=== PATIENT | female | born 1965 | race Caucasian/White ===

== ENCOUNTER 2022-10-09 15:06 | Outpatient (REF) | payer OTHER, SELFPAY ==
[2022-10-09 16:42] LABS: MANUAL DIFF FLAG NO
[2022-10-09 17:24] LABS: Basophils Absolute Auto 0.1 X10*3/uL (0.0-0.2); Eosinophils Absolute Auto 0.2 X10*3/uL (0.0-0.4); Eosinophils Percent Auto 2.2 % (0-4); Hemoglobin 13.6 g/dl (12.0-16.0); Imm Gran Abs Auto 0.02 X10*3/uL (0.00-0.03); Imm Gran Pct Auto 0.3 % (0.0-0.4); Lymphocytes Absolute Auto 2.2 X10*3/uL (1.2-4.9); Lymphocytes Percent Auto 30.2 % (20-40); Mean Corpuscular HGB Conc 32.4 g/dl (31.0-35.0); Mean Corpuscular Hemoglobin 31.1 pg (27.0-33.0); Mean Corpuscular Volume 96.1 fL (80.0-98.0); Mean Platelet Volume 11.3 fL (9.4-12.3); Monocytes Absolute Auto 0.8 X10*3/uL (0.1-1.2); Monocytes Percent Auto 10.9 % (2-11); Neutrophils Absolute Auto 4.1 x10*3/uL (2.0-8.3); Neutrophils Percent Auto 55.4 % (45-73); Platelet Count 253 X10*3/uL (160-400); Red Blood Count 4.37 X10*6/uL (4.20-5.50); Red Cell Distribution Width 14.1 % (11.0-16.0); White Blood Count 7.3 X10*3/uL (4.8-10.8)
[2022-10-09 18:04] LABS: Alanine Aminotransferase 19 U/L (0-31); Albumin Level 4.3 g/dL (3.5-5.0); Alkaline Phosphatase 80 U/L (39-117); Anion Gap 14 (12-20); Aspartate Amino Transferase 22 U/L (5-31); Bilirubin Total 0.4 mg/dL (0.0-1.0); Blood Urea Nitrogen 13 mg/dL (9-16); Calcium 9.7 mg/dL (8.4-10.2); Carbon Dioxide 28 mmol/L (22-29); Chloride 106 mmol/L (96-108); Estimated Glomerular Filt Rate > 60; Glucose Random 90 mg/dL (60-115); Magnesium 2.1 mg/dL (1.6-2.6); Phosphorus 3.5 mg/dL (2.7-4.5); Potassium 4.6 mmol/L (3.3-5.1); Sodium 143 mmol/L (135-145); Total Protein 6.9 g/dL (6.5-8.0)
[2022-10-09 18:20] LABS: Free T4 (Free Thyroxine) 0.91 ng/dL (0.71-1.85); Thyroid Stimulating Hormone 1.32 uIU/mL (0.32-4.0); Vitamin D 25-OH Total 38.1 ng/mL (>30)
[2022-10-13 21:49] LABS: Calcium (PTHI) 10.1 mg/dL (8.6-10.4); PTHI 32 pg/mL (16-77)
== END 2022-10-09 15:07 | disposition home or self-care (01) ==
LOC: HO.LAB 15:06
PROVIDERS: Visit Provider Obstetrics & Gynecology
DX: M81.0 Age-related osteoporosis without current pathological fracture (principal); Z20.2 Contact with and (suspected) exposure to infections with a predominantly sexual mode of transmission
CPT/HCPCS: 36415; 80053; 82306; 83735; 83970; 84100; 84439; 84443; 85025

== ENCOUNTER 2023-01-02 12:47 | Emergency (ER) | payer OTHER, SELFPAY ==
[2023-01-02 12:51] VITALS: BP 140/79; PULSE 72; RESP 18; TEMP 37.1; O2SAT 100; BMI 18.9
--- NOTE | 2023-01-02 12:54 | ED.WOUNDLAC ---
HPI - Wound/Laceration General Chief Complaint: Wound/Laceration Stated Complaint: Finger Lac R Hand Time Seen by Provider: 01/02/23 12:54 Source: patient Mode of arrival: ambulatory Limitations: no limitations History of Present Illness HPI narrative: 57-year-old female presents with laceration to her right middle finger, patient cut her finger with glass, same did against a door prior to arrival. Denies numbness, tingling. Reports that is bleeding or prior to arrival however now bleeding controlled. Not on a blood thinner. Up-to-date on tetanus shot. Review of Systems Review of Systems: Constitutional : No Fever, No Chills, Cardiovascular : No Chest Pain, No SOB Respiratory : No Dyspnea Gastrointestinal : No abdominal pain Musculoskeletal : No Joint Swelling Skin : No rash, positive skin laceration Neuro : No Weakness, No Numbness Psych : No SI/HI Yes all other systems are reviewed and are negative [facility] Past Medical History Attestation statement: The following information was validated with the patient. Source: old records reviewed and nursing notes reviewed Physical Exam Vital Signs: Vital Signs: Last Vital Signs Temp 98.7 F 01/02/23 12:51 Pulse 72 01/02/23 12:51 Resp 18 01/02/23 12:51 BP 140/79 H 01/02/23 12:51 Pulse Ox 100 01/02/23 12:51 O2 Del Method Room Air 01/02/23 12:51 BMI result Body Mass Index 18.9 vss Appearance: Alert.? Oriented X3.? No acute distress.? Head: Normocephalic, atraumatic, no step-offs or deformities Eyes: Pupils equal, round and reactive to light.? Neck: Normal inspection.? Neck supple.? CVS: Normal heart rate and rhythm.? Pulses normal.? Respiratory: No respiratory distress.? Breath sounds normal.? Abdomen: Soft and nontender.? Skin: Skin warm and dry.? Normal skin color.? Normal skin turgor.? + 2 cm linear lac to distal aspect of right middle finger . Cap refil <2 seconds. Normal sensation distally. Full ROM to all fingers b/l. No wrist drop. No FB visualized Extremities: No lower extremity edema.? No calf ttp. 5/5 strength to bilateral upper and lower extremities Neuro: Oriented X 3.? No motor deficit.? No sensory deficit. CN 2-12 intact Course Reevaluation(s) Reevaluation #1: Successful repair with Dermabond. Educated patient on diagnosis and treatment plan, answered all question, patient verbalizes understanding. At this time patient will be discharged home, advised to return with new or worsening symptoms. Educated on worrisome signs and symptoms and when to return. At this time I feel comfortable discharge home. Time: 12:57 Medical Decision Making Medical Decision Making MDM Narrative: 57-year-old female presents with laceration to right middle finger, cut herself with glass prior to arrival. Not on blood thinners. No numbness or tingling. Physical exam significant for Skin warm and dry.? Normal skin color.? Normal skin turgor.? + 2 cm linear lac to distal aspect of right middle finger . Cap refil <2 seconds. Normal sensation distally. Full ROM to all fingers b/l. No wrist drop. No FB visualized Likely simple laceration, no signs of foreign body, unlikely fracture dislocation. No signs of threatened limb or neurovascular compromise. Plan repair with Dermabond. Differential Diagnosis Differential Diagnoses: The differential diagnosis associated with the presentation includes Likely simple laceration, no signs of foreign body, unlikely fracture dislocation. No signs of threatened limb or neurovascular compromise. Admission/Observation Consideration of admission/observation: Escalation of care including admission/observation considered Not indicated Tests considered The following testing was considered but not selected: No indication for imaging, low suspicion for fractures or dislocation. Full range of motion to all fingers. Core Measures AMI core measures followed: Yes Measure exclusions: not indicated Discharge Plan Discharge Clinical Impression: Laceration Patient Disposition: Home, Self-Care Additional Instructions: Take your medications as prescribed. If you were prescribed antibiotics today, it is important that you take your medication to their entirety, do not skip any doses, do not finish them early. Follow-up with your primary care provider this week. Return to the emergency department with new or worsening symptoms. Such as fevers, chills, chest pain, shortness of breath, nausea, vomiting, dizziness, headache, vision changes, lethargy In case of emergency call 911 Please allow the Dermabond to fall off on its own. Return with new or worsening symptoms. Referrals: Jeff Hudson DO [Primary Care Provider] - 2 days
== END 2023-01-02 13:17 | disposition home or self-care (01) ==
PROVIDERS: Emergency Provider Emergency Medicine Emergency Medical Services; PCP Family Medicine
DX: S61.212A Laceration without foreign body of right middle finger without damage to nail, initial encounter (principal); W25.XXXA Contact with sharp glass, initial encounter; Y93.9 Activity, unspecified; Y92.9 Unspecified place or not applicable; Y99.9 Unspecified external cause status
CPT/HCPCS: 12001; 99282

== ENCOUNTER 2023-09-14 16:44 | Emergency (ER) | payer OTHER, SELFPAY ==
[2023-09-14 16:56] VITALS: BP 150/77; PULSE 91; RESP 16; TEMP 37.3; O2SAT 98; BMI 19.2
--- NOTE | 2023-09-14 17:04 | ED_ITS ---
HPI - General Adult General Chief complaint: Animal Bite Stated complaint: dog bite talked to Daily Time Seen by Provider: 09/14/23 17:03 Source: patient Mode of arrival: ambulatory Limitations: no limitations History of Present Illness HPI narrative: 58 yold healthy femal presents to the ED for right wrist dog bite. Patient states she was bitten yesterday by a dog who was there with its data entry clerk at the [facility]. Patient states she did not get the owners contact information and is unaware of dog's rabies status Related Data Previous Rx's Medication Instructions Recorded amoxicillin 875 mg-potassium 1 tab PO Q12H 10 days #20 tabs 09/14/23 clavulanate 125 mg tablet Allergies Allergy/AdvReac Type Severity Reaction Status Date / Time No Known Allergies Allergy Verified 09/14/23 17:04 Review of Systems 2 Review of Systems: dog bite Yes all other systems are reviewed and are negative [facility] Social History Social History Advance Directives: Yes Advance Directives Information Provided: No Advance Directives on File: No Physical Exam ED Vital Signs: Vital Signs - 24 hr 09/14/23 16:56 Temperature 99.1 F Pulse Rate 91 Respiratory Rate 16 Blood Pressure 150/77 H Pulse Oximetry 98 Oxygen Delivery Method Room Air BMI result Body Mass Index 19.2 Const General: cooperative, healthy appearing, comfortable, no acute distress, well developed, alert, awake and Physically active Orientation/consciousness: oriented to person, oriented to place, oriented to time and patient oriented x3 HENMT Head: Yes normal to inspection, Yes No palpable skull fracture present, Yes normocephalic and Yes atraumatic Eyes General: appearance normal, both eyes and all related structures Neck Neck: Yes normal visual inspection, Yes full ROM, Yes no lymphadenopathy, Yes no meningeal signs, Yes trachea midline, Yes supple, No anterior neck swelling and No tender Chest Chest palpation & inspection: normal inspection of the chest and normal palpation of entire chest wall Resp Effort & Inspection: normal respiratory effort and able to speak in complete sentences Cardio Jugular venous distension: no JVD Heart sounds: S1 normal heart sound present and S2 normal heart sound present GI Inspection: Yes normal to inspection and No abdominal wall ecchymosis Palpation (GI): Soft to palpation, not firm, nontender, no guarding and not rigid General: Yes no CVA tenderness Back/Spine/Pelvis Back: no CVA tenderness and No back tenderness Skin General skin exam: no rashes or lesions noted, elasticity normal and turgor normal Neuro General: oriented to person, oriented to place, oriented to time, patient oriented x3, gait normal, tone normal, moves all extremities, Normal light touch and pain sensation, no meningeal signs and no focal motor deficits Extrem General: Yes normal to inspection and Yes full ROM Hand/finger images: 2 1. dog bite. negative for erythema, pus dischage, foul odor, or active bleeding. motor, neuro, and vascular exam is intact. Psych Appearance: grossly normal, well kempt and not disheveled Course Course Course Narrative: RME: 58 yold female presents to the ED for right wrist laceration by dog yesterday at [facility]. Can not contact data entry clerk. Defer rabies vaccines. educated. discharged with antbiotics. Medical Decision Making Medical Decision Making [facility] Narrative: 58 yold female healthty presents to the ED for Dog bite that occurred yesterday. patient is deferring rabies immunoglobin vaccine and will try to contact dog's data entry clerk. Patient explained worrisome signs of rabies. Patient agreeable to antibiotics prescription. Patient states if she changes her mind about rabies vaccine she will return to the ED or follow up with PCP. Patient explained worrisome signs and informed to return to the ED immiediatley. Differential Diagnosis Differential Diagnoses: The differential diagnosis associated with the presentation includes (dog bite) Admission/Observation Consideration of admission/observation: Escalation of care including admission/observation considered Independent Historian Clinical information obtained from an independent historian. History obtained from or confirmed by: Spouse External Record Review External record reviewed: Other Prescription Management I considered prescription management with: Antibiotic Discharge Plan Discharge Clinical Impression: Dog bite Patient Disposition: Home, Self-Care Instructions: Animal Bite (ED) Additional Instructions: Return to the ED immediately for any redness, pus discharge, foul odor, fever, chills, inability to move extremity, bluish black discoloration, or any other concerning symptoms. Recommend follow-up with your primary care provider. If you change your mind and would like to receive rabies vaccine return to the ED immediately or follow up with your primary care provider. Prescriptions: New amoxicillin-pot clavulanate 875-125 mg tablet 1 tab PO Q12H 10 Days Qty: 20 0RF Discharge Date/Time: 09/14/23 17:54 Print Language: Tajik
== END 2023-09-14 17:54 | disposition home or self-care (01) ==
PROVIDERS: Emergency Provider Emergency Medicine; PCP Family Medicine
DX: S61.551A Open bite of right wrist, initial encounter (principal); W54.0XXA Bitten by dog, initial encounter; Y93.9 Activity, unspecified; Y92.89 Other specified places as the place of occurrence of the external cause; Y99.9 Unspecified external cause status
CPT/HCPCS: 99281; 99283

== ENCOUNTER 2024-06-16 14:27 | Outpatient (AMB) | payer OTHER, SELFPAY ==
[2024-06-16 14:35] VITALS: BMI 19.2
--- NOTE | 2024-06-16 14:35 | A.OFFVIS_ITS ---
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 Was seen by about 5 years ago and did not end up getting intervention at that time. States the veins on her inner thighs are painful and getting worse to the point of concern. 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 Complaints include pain over varicosities in the upper thighs bilaterally, cramping, fatigue, and heaviness of the lower extremities. It has been affecting their daily activities including standing, walking. It is noted bilateral legs. She had been seen by Dr. Perez, who advised that she had some venous insufficiency approximally 5 years ago; however there were no procedures done. Patient denies any previous venous surgery or injections. Patient denies any history of DVT/ PE. Patient denies any history of phlebitis. Trial of compression includes - compression stockings and elevation with some relief They now present for vascular evaluation regarding their varicose veins. [facility] Social History (Updated 06/16/24 @ 14:43 by Jessica Ward Mayra) Patient Tobacco Use Status: Never used Tobacco Review of Systems Const Reports as per HPI and Denies weakness ENT Reports Normal hearing present and Denies dizziness Card Reports as per HPI, Denies chest pain, Denies chest pain at rest, Denies chest pain with activity, Denies dyspnea and Denies dyspnea on exertion Resp Reports as per HPI, Denies cough, Denies dyspnea and Denies dyspnea on exertion GI Reports as per HPI, Denies abdominal pain, Denies nausea and Denies vomiting Musc Denies numbness Skin/Breast Reports as per HPI, Denies erythema and Denies wounds Neuro Reports Normal hearing present, Denies dizziness, Denies numbness, Denies Sensory deficit (Neuro) and Denies weakness Psych Reports no additional complaints Endo Reports no additional complaints Physical Exam Vital Signs: BMI result Body Mass Index 19.2 Const General: healthy appearing and no acute distress Orientation/consciousness: patient oriented x3 HEENT Head: Yes normal to inspection Ears: hearing grossly normal bilaterally Mouth: Normal oral and palatal mucosa present Resp Effort & Inspection: normal respiratory effort and able to speak in complete sentences Auscultation: clear to auscultation bilaterally Cardio Jugular venous distension: no JVD Rate: regular rate Rhythm: regular rhythm Heart sounds: S1 normal heart sound present and S2 normal heart sound present Bruits: no abdominal aortic bruits, no carotid bruits, no femoral bruits and no renal bruits Peripheral pulses: Peripheral pulses 2+ throughout GI Inspection: Yes normal to inspection Palpation (GI): No Abdominal aortic bruit present Skin General skin exam: no rashes or lesions noted Wounds: no wounds Hair: normal Neuro General: patient oriented x3 Cranial nerves: Yes Normal hearing present Cognition (Neuro): normal cognition Gait exam (Neuro): Normal gait present Motor exam (neuro): 5/5 motor strength present throughout Sensory Exam: No Sensory deficit (Neuro) Extrem Other: Bilateral lower extremities: Tenderness upon palpation of the inner thighs. Trace peripheral edema noted CEAP: C -3 E - primary A - superficial P - reflux General: Yes normal to inspection, Yes full ROM, Yes capillary refill normal and Yes normal gait Assessment & Plan Assessment & Plan (1) Varicose veins of both lower extremities with inflammation: Code(s): I83.11 - Varicose veins of right lower extremity with inflammation; I83.12 - Varicose veins of left lower extremity with inflammation Category: Medical Plan: Angie is presenting today as a self-referral for ongoing varicose veins, worsening over the last 5 years. In short, the patient has evidence of venous insufficiency. I have discussed the pathophysiology with the patient. In addition I have provided informational material regarding venous disease to the patient. We have discussed conservative measures including compression, elevation, and exercise. We discussed the importance of continuing with compression stockings and elevation. I have taken the liberty of ordering venous insufficiency testing with the patient. They will follow up with me after testing. The patient had an opportunity to ask questions regarding the treatment plan. All questions were answered. Imaging studies, laboratory studies and physical exam results were discussed and reviewed in detail. No major barriers to understanding were identified. The patient expressed understanding and agreement with the above treatment plan. The patient is aware they should contact our office by phone for worsening of the current condition or the appearance of new symptoms. Thank you for allowing me to participate in the vascular care of this patient. If you have any questions or concerns regarding the treatment for the above condition please do not hesitate to contact me. The office telephone contact is [phone]. This note is constructed using voice recognition software. While every effort has been made to ensure accuracy, tar processing technician errors may have been included. Thank you for allowing me to participate in the care of your patient. Yours sincerely, BOO Dahl Orders: Orders US venous duplex LE BI 1 Week I83.11 - Varicose veins of right lower extremity with inflammation, I83.12 - Varicose veins of left lower extremity with infl ammation Coding Level of Care Code New Pt Level 4 (64773) Diagnoses Varicose veins of both lower extremities with inflammation I83.11; I83.12
== END 2024-06-16 14:57 | disposition home or self-care (01) ==
PROVIDERS: PCP Family Medicine; Visit Provider Physician Assistant Surgical
DX: I83.11 Varicose veins of right lower extremity with inflammation (principal); I83.12 Varicose veins of left lower extremity with inflammation
CPT/HCPCS: 99204

== ENCOUNTER → 2024-06-16 14:27 | Outpatient (BNVA) | payer OTHER, SELFPAY | PROVIDERS: PCP Family Medicine; Visit Provider Physician Assistant Surgical ==

== ENCOUNTER 2024-07-04 12:45 | Outpatient (REF) | payer OTHER, SELFPAY ==
--- NOTE | ~2024-07-04 | US_ITS ---
CLINICAL HISTORY: I83.11 - Varicose veins of right lower extremity with inflammation Venous duplex ultrasound bilateral lower extremity Superficial venous ultrasound with reflux evaluation. Comparison: None Findings: The visualized deep veins are fully compressible with normal Doppler color flow and spectral tracings. No popliteal cyst. The bilateral great and small saphenous veins are normal in caliber. There is a single focus of reflux noted along the right great saphenous vein at the knee measuring up to 5 seconds. Otherwise no reflux or significant varicosity identified. IMPRESSION: 1. Negative for bilateral lower extremity deep vein thrombosis. 2. Single focus of reflux noted along the right greater saphenous vein of the level of the right knee. This document has been electronically signed by: Demond Domingo MD on 07/05/2024 11:31:29
== END 2024-07-04 12:46 | disposition home or self-care (01) ==
LOC: HO.US 12:45
PROVIDERS: PCP Family Medicine; Visit Provider Physician Assistant Surgical
DX: I83.11 Varicose veins of right lower extremity with inflammation (principal); I83.12 Varicose veins of left lower extremity with inflammation
CPT/HCPCS: 93970

== ENCOUNTER → 2024-07-04 12:46 | Outpatient (BNV) | payer OTHER, SELFPAY | PROVIDERS: PCP Family Medicine; Visit Provider Radiology Vascular & Interventional Radiology | DX: I83.11 Varicose veins of right lower extremity with inflammation (principal) | CPT/HCPCS: 93970 ==

== ENCOUNTER 2024-07-14 10:06 | Outpatient (AMB) | payer OTHER, SELFPAY ==
[2024-07-14 10:11] VITALS: BMI 19.2
--- NOTE | 2024-07-14 10:11 | MHC.OFFVIS ---
Vital Signs 07/14/24 10:11 Height 5 ft 2 in Weight 105 lb BMI 19.2 Intake Visit Reasons: follow up [facility] 07/04/24 Intake Note: follow up [facility] 07/04/24, Right LE worse than Left LE. Pain is worse on the inner thigh Accompanied by: Self / Same As Patient Allergies No Known Allergies Allergy (Verified 07/14/24 10:13) HPI HPI follow up [facility] 07/04/24: Details: Alexa is presenting today for a follow up to her venous insufficiency ultrasound, performed on 07/04/2024. She states she continues with bilateral lower extremity pain, particularly in the right upper inner thigh as well as down the left lower extremity. The pain has not worsened. She states she has been wearing compression stockings and elevating her legs. [facility] Social History Patient Tobacco Use Status: Never used Tobacco Review of Systems Const Reports as per HPI and Denies weakness ENT Reports Normal hearing present and Denies dizziness Card Reports as per HPI, Denies chest pain, Denies chest pain at rest, Denies chest pain with activity, Denies dyspnea and Denies dyspnea on exertion Resp Reports as per HPI, Denies cough, Denies dyspnea and Denies dyspnea on exertion GI Reports as per HPI, Denies abdominal pain, Denies nausea and Denies vomiting Musc Denies numbness Skin/Breast Reports as per HPI, Denies erythema and Denies wounds Neuro Reports Normal hearing present, Denies dizziness, Denies numbness, Denies Sensory deficit (Neuro) and Denies weakness Psych Reports no additional complaints Endo Reports no additional complaints Physical Exam Vital Signs: BMI result Body Mass Index 19.2 Const General: healthy appearing and no acute distress Orientation/consciousness: patient oriented x3 HEENT Head: Yes normal to inspection Ears: hearing grossly normal bilaterally Mouth: Normal oral and palatal mucosa present Resp Effort & Inspection: normal respiratory effort and able to speak in complete sentences Auscultation: clear to auscultation bilaterally Cardio Jugular venous distension: no JVD Rate: regular rate Rhythm: regular rhythm Heart sounds: S1 normal heart sound present and S2 normal heart sound present Bruits: no abdominal aortic bruits, no carotid bruits, no femoral bruits and no renal bruits Peripheral pulses: Peripheral pulses 2+ throughout GI Inspection: Yes normal to inspection Palpation (GI): No Abdominal aortic bruit present Skin General skin exam: no rashes or lesions noted Wounds: no wounds Hair: normal Neuro General: patient oriented x3 Cranial nerves: Yes Normal hearing present Cognition (Neuro): normal cognition Gait exam (Neuro): Normal gait present Motor exam (neuro): 5/5 motor strength present throughout Sensory Exam: No Sensory deficit (Neuro) Extrem General: Yes normal to inspection, Yes full ROM, Yes capillary refill normal and Yes normal gait Results Reviewed Results Reviewed: Brief summary of venous insufficiency testing is as follows: right great saphenous vein: negative right small saphenous vein: negative right accessory vein: none present left great saphenous vein: negative left small saphenous vein: negative left accessory vein: none present Please note there is no evidence of any venous aneurysms or significant tortuosity Assessment & Plan Assessment & Plan (1) Varicose veins of both lower extremities with inflammation: Code(s): I83.11 - Varicose veins of right lower extremity with inflammation; I83.12 - Varicose veins of left lower extremity with inflammation Category: Medical Plan: Alexa is presenting today on a follow-up to her venous insufficiency ultrasound performed on 07/04/2024. There was no venous insufficiency found on ultrasound. We had a lengthy discussion about the size of the veins as well as the blood flow through the veins. I was able to answer all of her questions. We did discuss that the pain that she has been experiencing is likely not due to a vascular issue. We discussed to reach back out to her primary care to get further evaluation and treatment. We discussed if she has any changes or increased pain of her lower extremities, she can always reach out to us at any point. If there are any questions or concerns, please do not hesitate to reach out to us. Coding Level of Care Code Est Pt Level 4 (21475) Diagnoses Varicose veins of both lower extremities with inflammation I83.11; I83.12 Comment Review of venous insufficiency ultrasound
== END 2024-07-14 10:34 | disposition home or self-care (01) ==
PROVIDERS: PCP Family Medicine; Visit Provider Physician Assistant Surgical
DX: I83.11 Varicose veins of right lower extremity with inflammation (principal); I83.12 Varicose veins of left lower extremity with inflammation
CPT/HCPCS: 99214

== ENCOUNTER 2024-11-14 16:15 | Outpatient (REF) | payer OTHER, SELFPAY | END 2024-11-14 16:16 | disposition home or self-care (01) | LOC: HO.MAMMO 16:15 | PROVIDERS: PCP Family Medicine; Visit Provider Obstetrics & Gynecology | DX: Z12.31 Encounter for screening mammogram for malignant neoplasm of breast (principal) | CPT/HCPCS: 77063; 77067 ==

== ENCOUNTER → 2024-11-14 16:30 | Outpatient (BNV) | payer OTHER, SELFPAY | PROVIDERS: PCP Family Medicine; Visit Provider Internal Medicine | DX: Z12.31 Encounter for screening mammogram for malignant neoplasm of breast (principal) | CPT/HCPCS: 77063; 77067 ==

== ENCOUNTER 2025-01-17 15:23 | Outpatient (REF) | payer OTHER, SELFPAY ==
[2025-01-18 11:07] LABS: Resp Syncy Virus RNA Qual PCR NEGATIVE (Negative); SARS COV2 PCR INHOUSE NEGATIVE (Negative)
== END 2025-01-17 15:24 | disposition home or self-care (01) ==
LOC: HO.LNP 15:23
PROVIDERS: PCP Family Medicine; Visit Provider Physician Assistant
DX: J06.9 Acute upper respiratory infection, unspecified (principal); R51.9 Headache, unspecified; R50.9 Fever, unspecified; R53.83 Other fatigue; R05.9 Cough, unspecified
CPT/HCPCS: 87637

== ENCOUNTER 2025-01-17 15:23 | Outpatient (AMB) | payer OTHER, SELFPAY ==
[2025-01-17 15:50] VITALS: BP 122/74; PULSE 96; TEMP 37.3; O2SAT 98; BMI 18.5
--- NOTE | 2025-01-17 15:50 | AM.OFFWIN_ITS ---
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 Headache times 2 days. Patient did travel to [place] Patient Tobacco Use Status: Never used Tobacco Dental Insurance Coordinator Required: No Is last menstrual period known: No Post menopausal: Yes Patient : No Allergies No Known Allergies Allergy (Verified 01/17/25 15:57) Do you need a note to return to daycare/school/sports/work: No HPI HPI Comments History of Present Illness Details Patient is a 59yo F who presents to office with cold symptoms She states that she recently went on a trip to [place] She returned one week ago and started with congestion/cold symptoms since then It became worse last night whens he started to experience subjective fever (temp 99.2 here), body aches and fatigue She still have the headache, ST 6/10, congestion Minimal cough without CP or SOB No GI symptoms Has not tried anything for symptoms No other complaints Denies other sick contacts from trip No covid test at home PFSH Social History Patient Tobacco Use Status: Never used Tobacco Patient : No Review of Systems Const Reports body aches, Denies chills, Reports fatigue, Reports fever(s), Reports headache(s) (sinus like) and Reports poor appetite Eyes Denies change in vision ENT Denies otalgia, Reports headache(s) (sinus like), Reports nasal congestion, Reports sore throat and Denies throat swelling Card Denies chest pain, Denies syncope and Denies dyspnea Resp Reports cough and Denies dyspnea GI Denies abdominal pain and Denies vomiting Musc Reports myalgias Neuro Denies syncope and Reports headache(s) (sinus like) Endo Reports fatigue Aller/Immun Denies throat swelling Physical Exam Vital Signs: Last Vital Signs Temp 99.2 F 01/17/25 15:50 Pulse 96 01/17/25 15:50 BP 122/74 01/17/25 15:50 Pulse Ox 98 01/17/25 15:50 Oxygen Delivery Method Room Air 01/17/25 15:50 BMI result Body Mass Index 18.5 General: Non-toxic, NAD. Speaking full sentences. Skin: Warm dry throughout Eye: EOMI, PERRL HENT: Airway patent. Uvula midline. Slight pharyngeal erythema without exudates or edema. 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 Bilateral canals clear. TM non-erythematous, non-bulging. No TM perforation or hemotympanum noted. Respiratory: CTA bilaterally. No wheezes, rales or rhonchi Cardiac: RRR. No murmur MSK: Full ROM extremities. Neurology: Alert. No aphasia or facial droop. Gait without abnormality Psych: Good mood and affect Assessment & Plan Assessment & Plan (1) Upper respiratory infection: Code(s): J06.9 - Acute upper respiratory infection, unspecified Qualifiers: URI type: unspecified viral URI Qualified Code(s): J06.9 - Acute upper respiratory infection, unspecified Plan: Patient seen and evaluated. Lungs CTA COVID flu/RSV swab obtained and obtained Rapid strep: negative Discussed symptomatic management, fluids, rest Discussed decongestand to help with sinus congestion Will call with swab results Patient gave verbal understanding and had no additional questions or concerns at time of discharge All questions answered Orders: Orders SARS-CoV2/FLU/RSV Today J06.9 - Acute upper respiratory infection, unspecified Coding Level of Care Code Est Pt Level 3 (79409) Diagnoses Viral upper respiratory tract infection J06.9 URI type: unspecified viral URI
== END 2025-01-17 16:41 | disposition home or self-care (01) ==
PROVIDERS: PCP Family Medicine; Visit Provider Physician Assistant
DX: J06.9 Acute upper respiratory infection, unspecified (principal)